=== PATIENT | female | born 1980 | race Caucasian/White ===

== ENCOUNTER → 2020-05-18 15:09 | Outpatient (CLI) | payer BC, SELFPAY ==
--- NOTE | ~2020-05-18 | XR_ITS ---
EXAMINATION: XR foot LT 2V INDICATION: Left foot pain TECHNIQUE: Two views of the left foot are obtained. COMPARISON: None available FINDINGS: There is no fracture, dislocation, or subluxation. The there is mild osteoarthritis at the first metatarsophalangeal joint and in several interphalangeal joints. The soft tissues are unremarka ble. Dorsal and plantar calcaneal enthesophytes are noted. IMPRESSION: 1. No acute osseous abnormality. Reviewed, dictated and finalized at location A. COB PIPES ASSEMBLER
== END ==
PROVIDERS: PCP Family Medicine; Visit Provider Family Medicine
DX: M79.672 Pain in left foot (principal)
CPT/HCPCS: 73620

== ENCOUNTER → 2020-07-20 11:59 | Outpatient (CLI) | payer BC, SELFPAY ==
--- NOTE | ~2020-07-20 | XR_ITS ---
XR lumbar spine 2-3V DATE: 07/20/2020 12:18 INDICATION: Back pain TECHNIQUE: AP, lateral and coned lateral lumbosacral views COMPARISON: None FINDINGS: There is mild dextroscoliosis of the lumbar spine. Normal alignment of the lumbar vertebrae. No fracture or bone destruction or spondylolisthesis. The l umbar and included lower thoracic pedicles are intact. There is moderately prominent degenerative disc disease at L5-S1 and mild degenerative disc disease a t the L2-3 and L4-5 interspaces. The sacroiliac joints appear normal. IMPRESSION: Dextroscoliosis Degenerative disc disease, greatest at L5-S1 Reviewed, dictated and finalized at location B.
== END ==
PROVIDERS: PCP Family Medicine; Visit Provider Physician Assistant
DX: M51.37 Other intervertebral disc degeneration, lumbosacral region (principal)
CPT/HCPCS: 72100

== ENCOUNTER → 2020-08-18 17:45 | Outpatient (CLI) | payer BC, SELFPAY ==
--- NOTE | ~2020-08-18 | MR_ITS ---
EXAMINATION: MR foot LT wo con DATE: 08/18/2020 18:56 INDICATION: Lateral left foot pain TECHNIQUE: Magnetic resonance imaging (MRI) of the left mid and hindfoot was performed without intrav enous contrast. Sequences included sagittal, coronal, and axial proton-density weighted fast spin ech o without and with fat saturation. COMPARISON: None. FINDINGS: Medial ankle ligaments: Deep and superficial deltoid ligaments as well as the spring ligament are normal. Lateral ankle ligaments: The anterior and posterior inferior tibiofibular ligaments are normal. The anterior talofibular, calc aneofibular and posterior talofibular ligaments are normal. Tendons: Achilles tendon is normal. Mild increased fluid signal along the peroneus tendon sheath at and slight ly distal to the retromalleolar groove where there is mild fusiform thickening of the peroneus longus tendon. Findings consistent with mild peroneal tenosynovitis and mild peroneus longus tendinopathy w ithout discrete tear. The peroneus brevis tendon is normal. The tibialis anterior and extensor halluc is longus and extensor digitorum longus tendons are normal. The tibialis posterior, flexor digitorum longus and flexor hallucis longus tendons are normal. Plantar fascia: Mild thickening of the proximal plantar aponeurosis at its calcaneal origin where there is a small en thesophyte consistent with chronic mild enthesopathy without surrounding associated edema to suggest acute plantar fasciitis. Bones/other: Bone alignment is normal. Normal marrow signal throughout with no fracture or pathologic marrow repla cing process. Mild osteoarthritis characterized by mild nonuniform joint space narrowing and tiny mar ginal osteophytes at the second-third tarsal metatarsal joints. Fluid: Physiologic amount fluid in the joint spaces. No other abnormal fluid collections. IMPRESSION: 1. Mild peroneal tenosynovitis and mild tendinopathy without discrete tear of the peroneus longus ten don. 2. Chronic mild plantar enthesopathy. 3. Mild osteoarthritis at the 2nd-4th tarsal metatarsal joints. Reviewed, dictated and finalized at location A. IMPRESSION: 1. Mild peroneal tenosynovitis and mild tendinopathy without discrete tear of t he peroneus longus tendon. 2. Chronic mild plantar enthesopathy. 3. Mild osteoarthritis at the 2nd-4th tarsal metatarsal joints.
== END ==
PROVIDERS: PCP Family Medicine; Visit Provider Podiatrist Foot & Ankle Surgery
DX: M19.072 Primary osteoarthritis, left ankle and foot (principal)
CPT/HCPCS: 73718

== ENCOUNTER 2023-06-16 15:22 | Outpatient (CLI) | payer BC, SELFPAY ==
[2023-06-16 16:13] LABS: Influenza A QL RT-PCR Negative (Negative); Influenza B QL RT-PCR Negative (Negative); RSV RNA, RT-PCR Negative (Negative); SARS-CoV-2 RNA PCR Negative (Negative)
== END 2023-06-16 15:23 | disposition home or self-care (01) ==
LOC: ANHLAB 15:23
PROVIDERS: PCP Family Medicine; Visit Provider Physician Assistant
DX: R05.9 Cough, unspecified (principal); R06.02 Shortness of breath; Z20.822 Contact with and (suspected) exposure to COVID-19
CPT/HCPCS: 87637

== ENCOUNTER 2023-07-18 15:20 | Outpatient (CLI) | payer BC, SELFPAY ==
--- NOTE | ~2023-07-18 | XR_ITS ---
EXAMINATION: XR chest 2V 07/18/2023 15:42 INDICATION: Cough for days PROCEDURE: 2 view chest COMPARISON: No prior studies for comparison. FINDINGS: The lungs are clear. The cardiomediastinal silhouette is within normal limits. There are no pleural effusions. There is no pneumothorax suspected. IMPRESSION: 1: NO ACUTE CARDIOPULMONARY DISEASE. Reviewed, dictated and finalized at location A.
[2023-07-18 16:19] LABS: Influenza A QL RT-PCR Negative (Negative); Influenza B QL RT-PCR Negative (Negative); RSV RNA, RT-PCR Negative (Negative); SARS-CoV-2 RNA PCR Negative (Negative)
== END 2023-07-18 15:21 | disposition home or self-care (01) ==
LOC: ANHLAB 15:21
PROVIDERS: PCP Family Medicine; Visit Provider Physician Assistant Medical
DX: R53.83 Other fatigue (principal); R09.89 Other specified symptoms and signs involving the circulatory and respiratory systems; R05.9 Cough, unspecified
CPT/HCPCS: 71046; 87637

== ENCOUNTER 2024-10-08 08:42 | Outpatient (CLI) | payer BC, SELFPAY ==
--- NOTE | ~2024-10-08 | US_ITS ---
Limited Abdominal Sonogram: Real-time sonographic imaging of the right upper quadrant was performed. Clinical History: Epigastric pain Findings: The liver appears mildly echogenic with no evidence of mass lesion or bile duct dilatation . Main portal vein demonstrates normal direction of flow. The gallbladder is partially distended, and appears normal with no evidence of gallstone or wall thickening. The common bile duct measures 4 mm. The visualized pancreas, aorta, and IVC are unremarkable. Impression: Probable diffuse fatty infiltration of liver. Reviewed, dictated and finalized at location M. Impression: Probable diffuse fatty infiltration of liver.
--- NOTE | ~2024-10-08 | US_ITS ---
US soft tissue abdomen Ordering provider: Nacho Bailey PA-C History: . R10.33 PERIUMBILICAL PAIN . Comparison: None. FINDINGS/impression: 4 cm hernia defect is seen in the supraumbilical area. Fat content is noted. Reviewed, dictated and finalized at location A.
== END 2024-10-08 08:43 | disposition home or self-care (01) ==
LOC: GOSHIMG 08:42
PROVIDERS: PCP Family Medicine; Visit Provider Physician Assistant
DX: S39.91XA Unspecified injury of abdomen, initial encounter (principal); R10.31 Right lower quadrant pain; R10.33 Periumbilical pain; R11.0 Nausea; R10.13 Epigastric pain; R10.9 Unspecified abdominal pain; K42.9 Umbilical hernia without obstruction or gangrene; K76.0 Fatty (change of) liver, not elsewhere classified
CPT/HCPCS: 76705

== ENCOUNTER 2024-11-08 10:55 | Outpatient (CLI) | payer BC, SELFPAY ==
--- NOTE | ~2024-11-08 | US_ITS ---
Pelvic ultrasound. Clinical History: Bloating Technique: Realtime transabdominal and transvaginal scanning of the pelvis was performed. Color flow Doppler and Doppler spectral analysis were performed. Findings: The uterus is anteverted. The endometrial stripe has a thickness of 12 mm. Large intramura l and partially exophytic posterior wall fibroid measures 5.3 x 5.2 x 5.5 cm.. The right ovary is not visualized. No significant right ovarian or adnexal mass is seen. The left ovary measures 3.4 x 2.6 x 3.1 cm. Follicular left ovarian cyst measures up to 2.4 cm in kristie meter. There is no evidence of free fluid in the cul de sac. Impression: 5.3 x 5.2 x 5.5 cm posterior fibroid, as detailed above. Reviewed, dictated and finalized at location . Impression: 5.3 x 5.2 x 5.5 cm posterior fibroid, as detailed above.
== END 2024-11-08 10:56 | disposition home or self-care (01) ==
PROVIDERS: PCP Nurse Practitioner; Visit Provider Nurse Practitioner
DX: R14.0 Abdominal distension (gaseous) (principal); D25.9 Leiomyoma of uterus, unspecified
CPT/HCPCS: 76830

== ENCOUNTER 2024-11-21 08:07 | Outpatient (CLI) | payer BC, SELFPAY ==
--- OUTSIDE RECORDS SUMMARY | 2024-11-21 08:15 | XMS_ITS ---
Author Organization [facility] [place] ([address]) Address [address] [place] [address] Care Team Providers Care Government Employee Name Role Phone Laly VERAS, Papo Primary Care Provider UnavailKerry De La Torre Unavailable [phone] Pat Coronel Unavailable REASON FOR VISIT LOGISTICS ASSISTANT Food Allergies Encounters Encounter Location Date Provider Diagnosis [address] [address] 06/26/2023 Kerry Cha Plan Of Treatment No Information Progress Notes * LOVE JuanZitaB:1980 (44 yo F)Acc No.[id number]:06/26/2023 Progress Notes Patient: Gayatri HENNING Provider: Carlitos Cha MD :1980 A ge:42 Y S ex:Female Date:06/26/2023 Address:[address] [facility] Pcp:Papo Ruffin MD Subjective: * Chief Complaints: * 1 . LOGISTICS ASSISTANT Food Allergies. * Medical History: Objective: * Vitals: Assessment: Plan: * Treatment: * Billing Information: * Visit Code: * Procedure Codes: * Electronic signature of Yamilex Cha MD on 11/21/2024 at 08:14 AM CDT Sign off status: Pending * Provider: Carlitos Cha MD Date: 0 06/26/2023 Generated for Lauro charles/Abbi/Bossman on: 0 11/21/2024 08:14 AM CDT
--- OUTSIDE RECORDS SUMMARY | 2024-11-21 08:15 | XMS_ITS | Clinical Summary ---
Author Organization [facility] Address [address] [place] [address] Care Team Providers Care Supervisor Net Making Name Role Phone Papo Ruffin MD Primary Care Provider [phone] Family History Medical History Relation Comments Breast Cancer Maternal Aunt in her 40s Relation Status Comments Maternal Aunt Alive Social History Tobacco Use Types Packs/Day Years Used Date Smoking Tobacco: Never Assessed Comments Unknown Sex and Gender Information Value Date Recorded Sex Assigned at Not on file Legal Sex Female 12:50 PM CDT Gender Identity Not on file Sexual Orientation Not on file Plan of Treatment Health Maintenance Due Date Last Done Comments Cervical Cancer Screening Pap Smear (Age 30 to 64) Every 3 Years 1982 Annual Physical 1985 Hepatitis C 2000 Hepatitis B Vaccines (1 of 3 - 19+ 3-dose series) 2001 HPV Vaccines (1 - 3-dose SCDM series) 2009 Cervical Cancer Screening Pap with HPV Testing (Age 30 to 64) Every 5 Years 2012 Cervical Cancer Screening with HPV 2012 COVID-19 Vaccine ( season) 2023 03/06/2022, 06/18/2021, 05/16/2021, Additional history exists Mammogram Screening 11/28/2025 11/29/2023, 3 DTaP, Tdap and Td Vaccines (3 - Td or Tdap) 03/06/2027 03/06/2017, 03/07/2014 Meningococcal B Vaccine Aged Out No l onger eligible based on patient's age to complete this topic Meningococcal Vaccine Aged Out No rina lore eligible based on patient's age to complete this topic Pneumococcal Vaccine: Pediatrics (0 to 5 Years) and At-Risk Patients (6 to 49 Years) Aged Out No longer eligible based on patient's age to complete this topic RSV Immunizations Under 20 Months Aged Out No longer eligible based on patient's age to complete this topic Procedures Procedure Name Priority Date/Time Associated Diagnosis Comments MG SCREENING W BRINDA SENAIT DIGI Routine 11/29/2023 3:10 PM CDT Screening mammogram, encounter for from Last 3 Months or Most Recently Relevant to Health Maintenance Results * MG SCREENING W BRINDA SENAIT DIGI (11/29/2023 3:10 PM CDT) Anatomical Region Laterality Modality Breast Bilateral Mammography 11/29/2023 5:36 PM CDT Impressions 11/29/2023 5:37 PM CDT IMPRESSION: No suspicious mammographic findings. Recommendation: 1. Routine Screening, Bilateral Assessment: ACR BI-RADS 2 - BENIGN FINDING(S) Ordered By: LAWSON MCDONOUGH Interpreted By: Blake Wheatley MD, 11/29/2023 5:36 PM Narrative 11/29/2023 5:37 PM CDT Examination: Screening bilateral mammogram Exam Date: 11/29/2023 2:54 PM Clinical history: Routine screening. Family history of breast cancer in her aunt. Comparison: 10/12/2022 Technique: Digital screening mammography of both breasts was performed. Breast tomosynthesis acquisitions were obtained and reviewed. This study was read with the assistance of a computer-aided detection system. Tissue density: There are scattered areas of fibroglandular density. Findings: No suspicious masses, malignant appearing calcifications, skin thickening or other abnormalities are present. Scattered benign-appearing calcifications. No significant change from the prior exam. us Lawson Mcdonough ASSEMBLY LEADER MAMMO Final Result from Last 3 Months or Most Recently Relevant to Health Maintenance [place] [address] [place] [address] BLUE SHIELD Care Teams Supervisor Net Making Relationship Specialty Start Date End Date Papo Ruffin MD [address] [place] [address] PCP - General FAMILY PRACTICE 10/03/22
--- OUTSIDE RECORDS SUMMARY | 2024-11-21 08:15 | XMS_ITS | Patient Health Record ---
Author Organization [facility] [facility] [employer] [facility] [place] ([address]) Address [address] [facility] [address] [place] [address] Care Team Providers Care Carver Hand Name Role Phone Papo Ruffin MD Primary Care Provider Jaa Kerry Blancas Unavailable [phone] Pat Coronel Unavailable Unavailable Allergies No Known Allergies Reason For Referral No Information Social History Tobacco Use: Social History Observation Description Date Details (start date - stop date) Never Smoker NA - NA Smoking Smart Form: Question Answer Notes Are you a: never smoker Problems Problem Type SNOMED Code ICD Code Onset Dates Problem Status W/U Status Risk Notes Problem Chronic allergic conjunctivitis (44945579) Other chronic allergic conjunctivitis (H10.45) Active confirmed Problem Allergic rhinitis caused by pollen (disorder) (05488709) Allergic rhinitis due to pollen (J30.1) Active confirmed Problem Allergic rhinitis (90534926) Other allergic rhinitis (J30.89) Active confirmed Problem Chronic rhinitis (41236915) Chronic rhinitis (J31.0) Active confirmed Problem Mild intermittent asthma (477450071) Mild intermittent asthma, uncomplicated (J45.20) Active confirmed Problem Uncomplicated mild persistent asthma (009407960) Mild persistent asthma, uncomplicated (J45.30) Active confirmed Problem Uncomplicated moderate persistent asthma (446207291) Moderate persistent asthma, uncomplicated (J45.40) Active confirmed Problem Uncomplicated severe persistent asthma (658063723) Severe persistent asthma, uncomplicated (J45.50) Active confirmed Problem Latex allergy status (Z91.040) Active confirmed Problem Allergic rhinitis caused by animal hair and dander (873242902733007) Allergic rhinitis due to animal (cat) (dog) hair and dander (J30.81) Active confirmed Plan Of Treatment No Information Insurance Providers Payer Name Payer Address Payer Phone Subscriber Number Group Number Insured Name Patient Relationship to Insured Coverage Start Date Coverage End Date [facility] [address] [place] [address] [id number] Gayatri Morales Self - patient is the insured 3 Medical (General) History Medical History History ICD Code Dermatitis, unspecified L30.9
== END 2024-11-21 08:08 | disposition home or self-care (01) ==
PROVIDERS: PCP Family Medicine; Visit Provider Surgery
DX: K43.9 Ventral hernia without obstruction or gangrene (principal)
CPT/HCPCS: 36415; 86850; 86900; 86901

== ENCOUNTER 2024-11-26 03:36 | Day surgery (SDC) | payer BC, SELFPAY ==
[2024-11-19 08:57] VITALS: BMI 45.1
--- NOTE | 2024-11-19 09:08 | SUR.PREOP ---
Report to the Outpatient Waiting Room, entrance under the green pavilion located off [facility], at time 0730 on date 11/26/24. Planned Procedure Time: 09.? Time changes happen often and if your time is changed the preop area will call you the afternoon before. - You and your visitor will be asked to self-screen and do not enter if you have any COVID symptoms. Please call surgeon if you need to reschedule. - A mask is optional within the hospital at this time. Patients may have clear liquids (water, carbonated beverages, clear teas, apple juice) until 3 hours prior to surgery with a maximum of 20 ounces. - No food from midnight until time of surgery and no smoking, or chewing tobacco (or any form of nicotine). No chewing gum, candy or mints. - Infants may have breast milk until 4 hours before surgery, formula 6 hours prior to surgery. - Children will be allowed to drink immediately following surgery.? If applicable, please bring a bottle or sippy cup to assist with drinking. Juice, water, soda, and popsicles are readily available.? For infants on formula, please bring formula the day of surgery.? Pacifiers are allowed. Take only the following medications with a SIP of water on the morning of surgery: ___n/a DO NOT STOP ANY OF YOUR OTHER PRESCRIPTION MEDICATIONS PRIOR TO SURGERY EXCEPT THE FOLLOWING Hold all vitamins and supplements for 3 days per anesthesiologist. Medications to discontinue per physician ___multivitamin for 3 days prior Date to take last dose Please no make-up, nail mongolian, hairspray, perfume, deodorant, or body powder the day of surgery.? No jewelry (including any body piercings) or valuables the day of surgery, leave them at home.? Please take a shower or bath the night before, or the morning of, surgery with an antibacterial soap.? Wear comfortable, loose fitting clothing.? Children are encouraged to wear pajamas. - Jewelry must be removed prior to entering the operating room.? Rings and piercings that are not removed may be cut off. - The hospital will not accept responsibility for valuables.? - Please leave all valuables, including medications, at home the day of surgery. If you are going home after surgery, a licensed recycling collections driver must drive you home.? - NO public transportation without another adult if you receive anesthesia. - We recommend that an adult stay with you for 24 hours following discharge. - We also recommend that you do not drive, make important decision, drink alcoholic beverages, or take any drugs that were not prescribed by your health care provider for at least 24 hours after your discharge time. For Pediatric surgeries, we recommend two adults accompany the child home. Follow any additional instructions given to you from your surgeon. Telephone instructions given to patient and asked if any additional questions and then verbalized understanding. Patient advised to call surgeon office or pre surgery nurse liaison [phone] if any additional questions.
[2024-11-26] VITALS (11 sets, daily range): BP systolic 113–146; BP diastolic 58–85; PULSE 62–88; RESP 12–20; TEMP 36.9–37; O2SAT 92–98
--- OUTSIDE RECORDS SUMMARY | 2024-11-26 03:39 | XMS_ITS ---
Author Organization [facility] [place] ([address]) Address [address] [place] [address] Care Team Providers Care Board Filler Name Role Phone Laly VERAS, Papo Primary Care Provider UnavailKerry De La Torre Unavailable [phone] Pat Coronel Unavailable REASON FOR VISIT CASINO FLOOR PERSON Food Allergies Encounters Encounter Location Date Provider Diagnosis [address] [address] 06/26/2023 Kerry Cha Plan Of Treatment No Information Progress Notes * Juan LOVEZitaB:1980 (44 yo F)Acc No.[id number]:06/26/2023 Progress Notes Patient: Gayatri HENNING Provider: Carlitos Cha MD :1980 A ge:42 Y S ex:Female Date:06/26/2023 Address:[address] [facility] Pcp:Papo Ruffin MD Subjective: * Chief Complaints: * 1 . CASINO FLOOR PERSON Food Allergies. * Medical History: Objective: * Vitals: Assessment: Plan: * Treatment: * Billing Information: * Visit Code: * Procedure Codes: * Electronic signature of Yamilex Cha MD on 11/26/2024 at 03:39 AM CDT Sign off status: Pending * Provider: Carlitos Cha MD Date: 0 06/26/2023 Generated for Lauro charles/Abbi/Bossman on: 0 11/26/2024 03:39 AM CDT
--- OUTSIDE RECORDS SUMMARY | 2024-11-26 03:39 | XMS_ITS | Patient Health Record ---
Author Organization [facility] [employer] [place] ([address]) Address [address] [facility] [address] [place] [address] Care Team Providers Care Help Desk Technician Name Role Phone Papo Ruffin MD Primary Care Provider Jaa Kerry Blancas Unavailable [phone] Pat Coronel Unavailable Unavailable Allergies No Known Allergies Reason For Referral No Information Social History Tobacco Use: Social History Observation Description Date Details (start date - stop date) Never Smoker NA - NA Smoking Smart Form: Question Answer Notes Are you a: never smoker Problems Problem Type SNOMED Code ICD Code Onset Dates Problem Status W/U Status Risk Notes Problem Chronic allergic conjunctivitis (73022722) Other chronic allergic conjunctivitis (H10.45) Active confirmed Problem Allergic rhinitis caused by pollen (disorder) (84654975) Allergic rhinitis due to pollen (J30.1) Active confirmed Problem Allergic rhinitis (92451765) Other allergic rhinitis (J30.89) Active confirmed Problem Chronic rhinitis (95597388) Chronic rhinitis (J31.0) Active confirmed Problem Mild intermittent asthma (979750196) Mild intermittent asthma, uncomplicated (J45.20) Active confirmed Problem Uncomplicated mild persistent asthma (759932795) Mild persistent asthma, uncomplicated (J45.30) Active confirmed Problem Uncomplicated moderate persistent asthma (156424079) Moderate persistent asthma, uncomplicated (J45.40) Active confirmed Problem Uncomplicated severe persistent asthma (542223888) Severe persistent asthma, uncomplicated (J45.50) Active confirmed Problem Latex allergy status (Z91.040) Active confirmed Problem Allergic rhinitis caused by animal hair and dander (915466730528912) Allergic rhinitis due to animal (cat) (dog) hair and dander (J30.81) Active confirmed Plan Of Treatment No Information Insurance Providers Payer Name Payer Address Payer Phone Subscriber Number Group Number Insured Name Patient Relationship to Insured Coverage Start Date Coverage End Date [facility] [address] [place] [address] [id number] Gayatri Morales Self - patient is the insured 3 Medical (General) History Medical History History ICD Code Dermatitis, unspecified L30.9
--- OUTSIDE RECORDS SUMMARY | 2024-11-26 03:39 | XMS_ITS | Clinical Summary ---
Author Organization [facility] Address [address] [place] [address] Care Team Providers Care Boom Truck Driver Name Role Phone Papo Ruffin MD Primary Care Provider [phone] Family History Medical History Relation Comments Breast [...] from the prior exam. us Lawson Mcdonough BALANCER MAMMO Final Result from Last 3 Months or Most Recently Relevant to Health Maintenance [place] [address] [place] [address] BLUE SHIELD Care Teams Boom Truck Driver Relationship Specialty Start Date End Date Papo Ruffin MD [address] [place] [address] PCP - General FAMILY PRACTICE 10/03/22
[2024-11-26] MEDS: LACTATED RINGERS 1,000 ML 30 ML IV CONT ×2 (08:00→11:59)
[2024-11-26] MEDS: ACETAMINOPHEN 500 MG TABLET 1000 MG PO (08:05)
[2024-11-26] MEDS: KETOROLAC 15 MG/ML VIAL (*BKC) IV PUSH (08:10)
--- NOTE | 2024-11-26 08:14 | WPDANESEPPF ---
Anes - Initial Pre Proc Eval Procedure: Operation Date: 11/26/24 09:30 Proposed Procedures p Laparoscopic Ventral Hernia Repair with Mesh, DaVinci Assisted - Afshin Maloney DO Date/Time: 11/26/24 08:14 Surgeon: Afshin Maloney DO Pre Op Diagnosis: Ventral Hernia Patient Data Age: 44 Gender: F Height: 1.68 m Weight: 127.01 kg Allergies Allergy/AdvReac Type Severity Reaction Status Date / Time adhesive Allergy Intermediate Rash Verified 11/19/24 08:55 latex Allergy Unknown Rash Verified 11/19/24 08:54 Home Medications ?Medication ?Instructions ?Recorded ?Confirmed ?Type multivitamin 1 tablet PO DAILY 10/31/24 11/19/24 History ergocalciferol (vitamin D2) 1,250 50,000 unit PO WEEKLY 11/22/24 11/22/24 History mcg (50,000 unit) capsule metronidazole 500 mg tablet 500 mg PO TID 11/22/24 11/22/24 History Patient hx anesthesia problems: none Family hx anesthesia problems: none Results Review: All pre-operative results and documents have been reviewed as part of the pre-operative evaluation. [facility] Past Medical History Medical History Headache Arthritis Family History Family History Father Hypertension Alcoholism Social History Social History Social History: Single Smoking status: Never smoker Second hand tobacco smoke exposure: No Alcohol intake: never Substance use: never Substance use type: does not use Do You Feel Safe in your Home?: Yes Lack of Transportation: No Lack of Food: Never True Current Housing: I Have Housing Concerned About Future Housing: No Difficulty Paying Gas/Electric Bills: No Difficulty Paying for Meds: No Currently Unemployed: No Education: Bachelor's Degree Difficulty w/ Childcare or Family Care: No Living arrangements: with family Occupation/Education: occupation Gender identity (if verbalized by the patient): Female Sexual Orientation (if Verbalized by the Patient): Straight or Heterosexual Spiritual care concerns: No Anes - Eval Final PreProcedure Day of Procedure 11/26/24 08:14 Patient weight: morbidly obese Heart: regular rate and rhythm Lungs: clear to auscultation Airway: Mallampati scale class III Neurological: alert and oriented Last oral intake: >/= 8 hours ASA classification: III Emergent: no Anesthetic plan: proceed Anesthesia type and monitoring: general ETT and standard monitoring Results Review: All pre-operative results and documents have been reviewed as part of the pre-operative evaluation. Informed Consent: The patient's anesthetic plan and its attendant risks and benefits were discussed with the patient/family/POA. Questions were solicited and answers provided to the satisfaction of the patient/family/POA.
--- NOTE | 2024-11-26 08:42 | SUR.PREOP ---
0835 PT STATES LEFT HAND IS HURTING BELOW IV SITE ALONG HER THUMB AND KNUCKLE, SITE CLEAR, NO REDDNESS, SWELLING OR RASH NOTED. IV FLUIDS AT KVO. WARM BLANKET APPLIED TO ENTIRE HAND. IV INSERTION SITE CLEAR. IV FLUIDS RUN FREELY. WILL CONTINUE TO MONITOR. 0845 PT STATES THE PAIN CONTINUES. NO CHANGE IN PREVIOUS ASSESSMENT. IV DISCONTINUED FOR PT COMFORT. WILL CONTACT VASCULAR ACCESS TO OBTAIN NEW IV ACCESS.
--- NOTE | 2024-11-26 09:27 | WPDHPUPDATE1 ---
History and Physical Update Update Date/Time: 11/26/24 09:27 History and Physical has been reviewed, including an updated exam of the patient. There are NO changes in the patient's condition. Risks, benefits, and alternatives have been discussed and questions answered. Patient agrees to proceed with procedure.
--- NOTE | 2024-11-26 09:27 | SUR.PREOP ---
0910 PT STATES PAIN REMAINS TO KNUCKLES/FINGERS. NO SWELLING OR REDDNESS NOTED TO HAND,FINGERS, OLD IV SITE. SMALL AREA OF BRUISING NOTED AT SITE. NO REDDNESS OR SWELLING PRESENT TO SITE. ICE PLACED TO HAND FOR PT COMFORT
--- NOTE | 2024-11-26 09:35 | SUR.PREOP ---
PT STATES THE ICE HAS HELPED HER HAND FEEL BETTER.
[2024-11-26] MEDS: ceFAZolin 3 GM/D5W 100 ML 100 ML IVPB (09:55)
[2024-11-26] MEDS: BUPIVACAINE/EPINEPHRINE 0.5% 50 ML VIAL 30 ML INFILTRATE (10:35)
--- NOTE | 2024-11-26 11:48 | P.OP_ITS ---
Procedure Note - Detailed Date of Procedure 11/26/24 Pre-op Diagnosis Ventral Hernia Post-op Diagnosis Same (2 cm supraumbilical ventral hernia) Procedure Performed Laparoscopic 2 cm ventral hernia repair with mesh, da Chace assisted Surgeon Afshin Maloney DO Anesthesia General and Local (0.5% bupivacaine with epinephrine) Indications This is a 44-year-old woman who presented with pain in the supraumbilical region that started about 2 months ago. She was noticing a pressure feeling and occasionally radiating pain further cephalad. An ultrasound was performed which showed evidence of a supraumbilical ventral hernia. Discussions were made with the patient about treatment options and decision was made to proceed with robotic assisted laparoscopic ventral hernia repair with mesh. Findings Robotic assisted laparoscopic 2 cm ventral hernia repair with mesh was performed. The patient was found to have a 2 cm hernia defect just superior to the umbilicus. This was containing preperitoneal fat. A robotic transabdominal preperitoneal approach was utilized for repair. Once a wide enough preperitoneal pocket was created and the herniated contents were reduced, I then closed the fascia with 0 Stratafix running absorbable suture and then placed a 1 5 cm x 15 cm Bard soft mesh. No other intra-abdominal abnormalities were noted. No specimens were obtained for pathology. Description of Procedure Procedure as well as risks, benefits, and alternatives were discussed with the patient. Written consent was obtained and placed in chart prior to procedure. Patient was brought back to surgical suite. She was placed supine on operating table. Time-out was done to confirm patient and procedure. She was then intubated by the anesthesia department. A bump was placed under her left hip, and the bed was flexed slightly to extend the space between her costal margin and iliac crest. Her abdomen was prepped and draped in sterile fashion using chlorhexidine prep. A 5 millimeter incision was made in the left upper quadrant, and a 5 millimeter Optiview trocar was advanced through the abdominal layers under direct visualization. Once inside the abdominal cavity, carbon dioxide insufflation was used to create a pneumoperitoneum. Her abdomen was inspected. An 8 millimeter incision was made in the left lower quadrant, and an 8 millimeter robotic trocar was placed under direct visualization. Another 8 millimeter incision was made in the left lateral abdomen, and an 8 millimeter robotic trocar was placed under direct visualization. 0.5% bupivacaine with epinephrine was infiltrated around each port site. The 5 millimeter port was removed, and an 8 mm robotic trocar was placed under direct visualization. The robotic arms were brought up to the patient's bedside and secured to the ports. The camera and instruments were inserted, and I then moved over to the robotic console and took control of the camera and instruments. After careful thorough inspection of the abdominal cavity, I began my dissection at the hernia. I began developing a preperitoneal pocket in the left upper quadrant and continued this along the left lateral abdomen down to the left lower quadrant using scissors with electrocautery the preperitoneal plane was then carefully dissected medially using scissors with electrocautery. The hernia sac was reduced and then I continued the preperitoneal dissection to the right lateral abdomen wide enough to allow for mesh placement. I then measured the hernia size. The hernia measured 2 cm and was located just cephalad to the umbilicus. The fascia was closed using an 0-Stratafix running suture in a vertical fashion. A Bard soft 15 cm x 15 cm mesh was then placed within the preperitoneal pocket. This was oriented vertically with the mesh centered on the hernia defect. The mesh was then secured at the center and 4 corners using 3-0 Vicryl simple interrupted sutures. The peritoneum was then closed over the mesh using 3 0 V lock running absorbable suture. The repair was inspected, and one final inspection was made around the abdominal cavity. The robotic instruments were then removed, and the robotic arms were disengaged from the trocars. The ports were then removed under direct visualization, the camera was removed, and the pneumoperitoneum was released. The skin of the incisions was then approximated using 4-0 Monocryl subcuticular suture. Exofin glue was then applied on top. The patient was then awakened from anesthesia, extubated, and transferred to recovery. Implants Bard soft mesh 15 cm x 15 cm Estimated Blood Loss 5 Complications No immediate complications Condition Stable Disposition Same day [facility] Billing Surgery - Charge Forward: Surgery Billing
[2024-11-26] MEDS: ONDANSETRON INJ 4 MG/2 ML VIAL IV PUSH (12:40)
[2024-11-26] MEDS: fentaNYL CITRATE INJ (*CRX) 100 MCG/2 ML VIAL 25 MCG IV PUSH ×4 (12:43→13:16)
[2024-11-26] MEDS: oxyCODONE HCL (*CRX) 5 MG TAB IR PO (13:52)
== END 2024-11-26 14:50 | disposition home or self-care (01) ==
PROVIDERS: PCP Family Medicine; Visit Provider Surgery
PROC: (CPT 49591; principal; 2024-11-26 09:30)
DX: K43.9 Ventral hernia without obstruction or gangrene (principal); M19.90 Unspecified osteoarthritis, unspecified site; E66.01 Morbid (severe) obesity due to excess calories; Z68.42 Body mass index [BMI] 45.0-49.9, adult
CPT/HCPCS: 49591; S2900; A9270; C1781; J0690; J1100; J1885; J2003; J2250; J2405; J2704; J3010; J7030; J7120